=== PATIENT | male | born 1975 | race Hispanic/Latino ===

== ENCOUNTER 2017-09-06 10:22 | Outpatient (CLI) | payer BC | END 2017-09-06 10:23 | disposition home or self-care (01) | LOC: BICRAD 10:22 | PROVIDERS: ATTEND Family Medicine | DX: M53.3 Sacrococcygeal disorders, not elsewhere classified (principal); M47.816 Spondylosis without myelopathy or radiculopathy, lumbar region; M47.817 Spondylosis without myelopathy or radiculopathy, lumbosacral region | CPT/HCPCS: 72110; 72170; 72220 ==

== ENCOUNTER 2021-02-28 11:00 | Inpatient (IN) | payer BC, SELFPAY ==
[2021-02-28 11:44] LABS: #Eosinphils 0.2 thou/uL (0.0-0.7); #Lymphocytes 1.8 thou/uL (1.20-3.40); #Monocytes 0.7 thou/uL (0.11-0.59); #Neutrophils 7.3 thou/uL (1.40-6.50); %Basophils 0.4 % (0.0-1.0); %Eosinophils 1.7 % (0.0-10.0); %Lymphocytes 18.1 % (21.0-51.0); %Monocytes 6.9 % (0.0-10.0); %Neutrophils 72.9 % (42.0-75.0); Bacteria/HPF None Seen HPF (None Seen); Bilirubin Negative (Negative); Blood, Urine Trace (Negative); Clarity Clear (Clear); Glucose, Urine (Dipstick) Normal (Negative); Hemoglobin 14.7 g/dL (14.0-18.0); Ketone, Urine Negative (Negative); Leukocyte Negative Leu/uL (Negative); Mean Corpuscular HGB CONC 33.6 g/dL (32.0-36.0); Mean Corpuscular Hemoglobin 29.4 pg (27.0-31.0); Mean Corpuscular Volume 87.5 fL (78.0-98.0); Mean Platelet Volume 9.6 fL (7.4-10.4); Nitrite Negative (Negative); Platelet Count 197 thou/uL (130-400); Protein, Urine (Dipstick) 10 mg/dL (Neg-Trace); RBC Distribution Width 12.1 % (11.5-14.5); RBC/HPF 0-3 HPF (0-3); Specific Gravity, Urine 1.026 (1.002-1.036); Squamous Epithelial None Seen HPF (0-3); Urobilinogen Normal mg/dL (Less than 2); WBC/HPF 0-3 HPF (0-3); pH, Urine 5.5 (5.0-9.0)
[2021-02-28 12:11] LABS: ALT (SGPT) 23 U/L (8-55); AST (SGOT) 12 U/L (5-34); Albumin 3.9 g/dL (3.5-5.0); Alkaline Phosphatase 98 U/L (40-110); Anion Gap 14 mmol/L (10-20); BUN (Urea Nitrogen) 11 mg/dL (8.9-20.6); Bilirubin, Total 0.5 mg/dL (0.2-1.2); CK (CPK) 90 U/L (30-200); Calc. Creatinine Clearance 0 mL/min (70-130); Calcium 9.1 mg/dL (7.8-10.44); Carbon Dioxide 23 mmol/L (22-29); Chloride 105 mmol/L (98-107); Globulin 3.7 g/dL (2.4-3.5); Glucose 91 mg/dL (70-105); Lipase 29 U/L (8-78); Potassium 3.9 mmol/L (3.5-5.1); Protein, Total 7.6 g/dL (6.0-8.3); Sodium 138 mmol/L (136-145)
[2021-02-28] MEDS ORDERED: Piperacillin/Tazobactam 4.5 GM VIAL ONE (13:29)
[2021-02-28] MEDS ORDERED: Acetaminophen 325 MG TAB PO PRN (14:53)
[2021-02-28] MEDS ORDERED: Ondansetron ODT 4 MG TAB PO PRN (14:53)
[2021-02-28] MEDS ORDERED: Acetaminophen 650 MG Suppository PR PRN (14:53)
[2021-02-28] MEDS ORDERED: Ondansetron PF 4 MG/2 ML Vial IVP PRN (14:53)
[2021-02-28 17:20] VITALS: BMI 33.5
[2021-02-28] MEDS: Piperacillin/Tazobactam 4.5 GM in Sodium Chloride 0.9% 100 ML IVPB SCH (19:50)
[2021-02-28] MEDS: Morphine 2 MG/ML VIAL SLOW IVP PRN (19:57)
[2021-02-28 20:47] LABS: SARS-CoV-2 PCR by NAA Not Detected (NotDetected)
[2021-03-01] MEDS: Piperacillin/Tazobactam 4.5 GM in Sodium Chloride 0.9% 100 ML IVPB SCH ×4 (01:51→19:53)
[2021-03-01 06:14] LABS: #Basophils 0.1 thou/uL (0.0-0.2); #Eosinphils 0.2 thou/uL (0.0-0.7); #Monocytes 0.7 thou/uL (0.11-0.59); %Basophils 0.6 % (0.0-1.0); %Eosinophils 2.7 % (0.0-10.0); %Lymphocytes 22.7 % (21.0-51.0); %Monocytes 7.4 % (0.0-10.0); %Neutrophils 66.7 % (42.0-75.0); Hemoglobin 13.7 g/dL (14.0-18.0); Mean Corpuscular HGB CONC 33.2 g/dL (32.0-36.0); Mean Corpuscular Hemoglobin 28.9 pg (27.0-31.0); Mean Corpuscular Volume 87.2 fL (78.0-98.0); Mean Platelet Volume 9.7 fL (7.4-10.4); Platelet Count 193 thou/uL (130-400); RBC Distribution Width 12.2 % (11.5-14.5); Red Blood Cell (RBC) Count 4.74 mill/uL (4.70-6.10)
[2021-03-01 06:35] LABS: Anion Gap 13 mmol/L (10-20); BUN (Urea Nitrogen) 13 mg/dL (8.9-20.6); Calc. Creatinine Clearance 128 mL/min (70-130); Carbon Dioxide 28 mmol/L (22-29); Chloride 102 mmol/L (98-107); Glucose 94 mg/dL (70-105); Potassium 3.9 mmol/L (3.5-5.1); Sodium 139 mmol/L (136-145)
[2021-03-01] MEDS: Morphine 2 MG/ML VIAL SLOW IVP PRN ×2 (08:19→19:54)
[2021-03-02] MEDS: Piperacillin/Tazobactam 4.5 GM in Sodium Chloride 0.9% 100 ML IVPB SCH ×2 (02:16→07:45)
[2021-03-02] MEDS: Morphine 2 MG/ML VIAL SLOW IVP PRN ×2 (02:22→07:46)
[2021-03-02 11:56] VITALS: BP 118/74; TEMP 98.5
== END 2021-03-02 12:43 | disposition home or self-care (01) | DRG 392 ==
LOC: ERS 11:00 → ERHOLD 13:47 → T4-A 16:09
PROVIDERS: ADMIT Internal Medicine; ATTEND Internal Medicine
DX: K57.20 Diverticulitis of large intestine with perforation and abscess without bleeding (principal); Z20.822 Contact with and (suspected) exposure to COVID-19
CPT/HCPCS: 36415; 71045; 74176; 80048; 80053; 81003; 81015; 82550; 83690; 85025; 87040; 87149; 93005; 96365; J2270; J2405; J2543; J3490; U0003; U0005

== ENCOUNTER 2024-09-20 15:56 | Emergency (ER) | payer BC ==
[2024-09-20] MEDS ORDERED: Ketorolac Tromethamine 30 MG (1 mL) VIAL ONE (17:22)
== END 2024-09-20 17:33 | disposition home or self-care (01) ==
LOC: ERS 15:56
DX: L08.9 Local infection of the skin and subcutaneous tissue, unspecified (principal)
CPT/HCPCS: 96372; 99282; J1885